=== PATIENT | female | born 1985 | race African-American/Black ===

== ENCOUNTER 2021-05-17 16:02 | Emergency (ER) | payer BC, SELFPAY ==
[2021-05-17 16:04] VITALS: BP 131/80; PULSE 75; RESP 18; TEMP 36.3; O2SAT 100
--- NOTE | 2021-05-17 18:13 | ED.DENTAL ---
HPI - Dental/Oral General Chief complaint: Dental/Oral Stated complaint: dental pain Time Seen by Provider: 05/17/21 18:00 History of Present Illness HPI Narrative: 36-year-old female presents to the emergency room with dental pain status post multiple tooth extraction 3 days ago. Patient states that she was sent home on OxyContin, and has recently been experiencing some nausea. Patient also states that the pain has gotten worse despite using the OxyContin and [id number] ibuprofen. Related Data Allergies Allergy/AdvReac Type Severity Reaction Status Date / Time No Known Allergies Allergy Verified 03/24/17 19:40 Review of Systems Review of Systems: CONSTITUTIONAL: Denies fever, chills, or sweats. EYES: Denies visual changes, redness, or discharge. ENT: Denies rhinorrhea, congestion, sore throat. Reports left lower dental pain CARDIOVASCULAR: Denies chest pain, palpitations, or edema. RESPIRATORY: Denies cough or dyspnea. GASTROINTESTINAL: Denies abdominal pain, nausea, vomiting, or diarrhea. GENITOURINARY: Denies dysuria or hematuria. SKIN: Denies rash or itching. MUSCULOSKELETAL: Denies back pain, joint pain, or myalgia. NEUROLOGIC: Denies headache, numbness, dizziness, or weakness. PSYCHIATRIC: Denies anxiety or depression. Exam Narrative: GENERAL: Well-appearing, well-nourished, and in no acute distress. HEAD: Normocephalic, atraumatic. EYES: PERRLA and EOMI. ENT: Nares clear, no rhinorrhea or epistaxis. Mucous membranes moist. Pain to tooth #16, dry socket to #17; no palpable left mandible mass NECK: Supple. No adenopathy or masses. No carotid bruits or JVD CHEST: Clear to auscultation. No respiratory distress. No wheezes rales or rhonchi HEART: Regular rate and rhythm. No murmur heard. Normal peripheral pulses. ABDOMEN: Soft, nontender, nondistended, normal active bowel sounds. EXTREMITIES: Normal range of motion. No edema. SKIN: Warm, dry, no rash. NEURO: No focal deficits. Alert and oriented x3. PSYCH: Normal mood and affect. Course Vital Signs Vital signs: Vital Signs Temperature 36.3 C L 05/17/21 16:04 Pulse Rate 75 05/17/21 16:04 Respiratory Rate 18 05/17/21 16:04 Blood Pressure 131/80 05/17/21 16:04 Pulse Oximetry 100 05/17/21 16:04 Temperature 36.3 C L 05/17/21 16:04 Pulse Rate 75 05/17/21 16:04 Respiratory Rate 18 05/17/21 16:04 Blood Pressure 131/80 05/17/21 16:04 Pulse Oximetry 100 05/17/21 16:04 MDM - Dental/Oral MDM Narrative Medical decision making narrative: Patient is status post multiple dental extraction. Concern for dry socket and/or dental abscess. Will send patient home with antibiotics Discharge Plan Discharge Clinical Impression: Toothache, Nausea Patient Disposition: Home, Self-Care Condition: Stable Instructions: Antibiotic Form, Toothache (ED) Additional Instructions: Continue OxyContin as needed. Recommend continuing ibuprofen as needed. Take prescriptions as indicated. Recommend follow-up with Ortho surgeon in 3 to 4 days if symptoms have not improved. Prescriptions: New amoxicillin-pot clavulanate 875-125 mg tablet 1 tablet PO Q12H Qty: 20 RF: 0 ondansetron 4 mg tablet,disintegrating 4 mg PO Q6H PRN (Reason: nausea and vomiting) Qty: 20 RF: 0 Follow-up/Referrals: Venkata,Beronica Antunez MD [Primary Care Provider] - Stand Alone Forms: Work/School Release IP
[2021-05-17 18:31] VITALS: BP 126/72; PULSE 72; RESP 16; TEMP 36.4; O2SAT 99
== END 2021-05-17 18:31 | disposition home or self-care (01) ==
PROVIDERS: Emergency Provider Nurse Practitioner Family; PCP Family Medicine
DX: K08.89 Other specified disorders of teeth and supporting structures (principal); R11.0 Nausea; M27.3 Alveolitis of jaws; Z98.818 Other dental procedure status
CPT/HCPCS: 99283

== ENCOUNTER 2021-08-11 08:54 | Emergency (ER) | payer OTHER, SELFPAY ==
--- NOTE | 2021-08-11 08:57 | ED.URI ---
HPI - URI/Sore Throat General Chief Complaint: Upper Respiratory Infection Stated Complaint: cough/chills/body aches Time Seen by Provider: 08/11/21 09:05 Source: patient, RN notes reviewed and old records reviewed Mode of arrival: ambulatory Limitations: no limitations History of Present Illness HPI Narrative: 36-year-old female presents to the [facility] with complaints of fever, body aches, nasal congestion that she woke up with this morning. No treatment prior to arrival MD elicited complaint: fever, rhinorrhea and nasal congestion Related Data Home Medications Medication Instructions Recorded Confirmed L norgest/e.estradiol-e.estrad 1 tablet PO DAILY 08/11/21 08/11/21 [Simpesse] amoxicillin 500 mg PO QID 08/11/21 08/11/21 Allergies Allergy/AdvReac Type Severity Reaction Status Date / Time No Known Allergies Allergy Verified 08/11/21 09:20 Review of Systems Review of Systems: All systems reviewed & are unremarkable except as noted in HPI and below Constitutional: Constitutional: Reports as per HPI, Reports body ache(s), Reports chills, Reports fatigue, Reports fever(s) and Denies headache(s) Eyes: Eyes: Reports no additional eye complaints ENT: Reports as per HPI, Denies vertigo, Denies dizziness, Denies headache(s), Denies nasal congestion and Denies sore throat Cardiovascular: Cardiovascular: Reports no additional cardiovascular complaints, Denies chest pain, Denies syncope, Denies rapid heart rate and Denies dyspnea Respiratory: Respiratory: Reports no additional respiratory complaints, Denies cough, Denies dyspnea and Denies wheezing Gastrointestinal: Gastrointestinal: Reports no additional gastrointestinal complaints, Denies abdominal pain, Denies diarrhea, Denies nausea and Denies vomiting Musculoskeletal: Musculoskeletal: Reports no additional musculoskeletal complaints and Denies numbness Integumentary/Breasts: Skin/Breast: Reports system reviewed and no additional complaints, except as docu Neurologic: Reports system reviewed and no additional complaints, except as documented, Denies vertigo, Denies dizziness, Denies syncope, Denies headache(s), Denies focal weakness and Denies numbness Psychiatric: Psychiatric: Reports no additional psychiatric complaints Allergic/Immunologic: Allergic/Immunologic: Reports no additional allergic/immunologic complaints and Denies wheezing PMFSH Comments At the time of my signature, I reviewed and agree with the nursing past medical, surgical, social, and family history. There is no relevant family history pertinent to the patient complaint. Exam Const: General: cooperative, no acute distress, well developed, alert and ill appearing acutely (Mild) Nutritional Appearance: well nourished Orientation/consciousness: patient oriented x3 Limitations: no limitations HENMT: Head: normal to inspection Ears: external ears normal, TM's normal bilaterally and EAC's normal General nose exam: Nasal discharge present clear Face and sinus: normal facial exam Mouth: Yes moist mucous membranes Throat: posterior oropharynx normal Eyes: Conjunctivae: conjunctivae normal Pupils: Equal, round and reactive pupils present Neck: Neck: normal visual inspection, no lymphadenopathy and no meningeal signs Chest: Chest palpation & inspection: normal inspection of the chest Resp: Effort & Inspection: normal respiratory effort and no use of accessory muscles Auscultation: clear to auscultation bilaterally, no crackles, no rales, no rhonchi and no wheezes Cardio: Rate: regular rate Rhythm: regular rhythm Back/Spine/Pelvis: Back: no CVA tenderness Skin: General skin exam: normal color Rashes: no rashes Wounds: no wounds Neuro: General: patient oriented x3, moves all extremities, no meningeal signs and no focal motor deficits Cranial nerves: Yes Equal, round and reactive pupils present Speech: normal speech Gait exam (Neuro): Normal gait present Extrem: General: normal to insp
[2021-08-11 09:03] VITALS: BP 94/72; PULSE 107; RESP 16; TEMP 38.3; O2SAT 98
[2021-08-11] MEDS: ACETAMINOPHEN 500 MG TABLET 1000 MG PO (09:15)
[2021-08-11 19:54] LABS: SARS-CoV-2 RNA PCR Positive
== END 2021-08-11 09:25 | disposition home or self-care (01) ==
PROVIDERS: Emergency Provider Nurse Practitioner; PCP Family Medicine
DX: U07.1 COVID-19 (principal)
CPT/HCPCS: 87804; 99213; A9270; C9803; G0463; U0003; U0005

== ENCOUNTER 2022-11-15 08:38 | Emergency (ER) | payer OTHER, SELFPAY ==
[2022-11-15 08:53] VITALS: BP 111/75; PULSE 79; RESP 20; TEMP 36.4; O2SAT 100
--- NOTE | 2022-11-15 09:39 | ED.URI ---
HPI - URI/Sore Throat General Chief Complaint: Upper Respiratory Infection Stated Complaint: congestion,cough Time Seen by Provider: 11/15/22 09:28 Source: patient and RN notes reviewed Mode of arrival: ambulatory Limitations: no limitations History of Present Illness HPI Narrative: Patient presents today complaining of a 3 day history of cough, congestion, sinus pressure, slight rhinorrhea. Denies fever, body aches, any additional symptoms. Denies known sick contacts. No history of asthma. She is a nonsmoker. She has been taking Tylenol and Sinex without relief. Related Data Home Medications Medication Instructions Recorded Confirmed L norgest/E estradiol-E estrad 1 tablet PO DAILY 08/11/21 11/15/22 0.15 mg-30 mcg (84)/10 mcg(7) tabs,3mos (Simpesse) Allergies Allergy/AdvReac Type Severity Reaction Status Date / Time No Known Allergies Allergy Verified 11/15/22 09:03 Review of Systems Review of Systems: CONSTITUTIONAL: Denies body aches, fever, chills, or sweats. EYES: Denies visual changes, redness, or discharge. ENT: Denies sore throat, or otalgia.+ rhinorrhea, congestion, sinus pressure CARDIOVASCULAR: Denies chest pain, palpitations, or edema. RESPIRATORY: Denies dyspnea.+ cough GASTROINTESTINAL: Denies abdominal pain, nausea, vomiting, or diarrhea. GENITOURINARY: Denies dysuria or hematuria. SKIN: Denies rash, itching, or wounds. MUSCULOSKELETAL: Denies back pain, joint pain, or myalgia. NEUROLOGIC: Denies headache, numbness, tingling, or weakness. PSYCH: Denies depression or anxiety. PMFSH Comments At time of signature, I have reviewed and agree with nursing past medical, surgical, social and family history unless otherwise noted. Please see nursing chart for further information. There is no relevant family history pertinent to the presenting complaint Exam Narrative: GENERAL: Well-appearing, well-nourished, and in no acute distress. HEAD: Normocephalic, atraumatic. EYES: EOMI. No redness or drainage. Conjunctivae normal. ENT: Mucous membranes pink and moist. Nares congested with rhinorrhea. TMs normal bilaterally. Throat normal. Uvula midline. NECK: Normal AROM. Supple. No lymphadenopathy. CHEST: No respiratory distress. Clear to auscultation. HEART: Regular rate and rhythm. No murmur appreciated. Normal peripheral pulses. EXTREMITIES: Normal range of motion. No edema. SKIN: Warm, dry, no rash. Capillary refill normal. Normal skin turgor. NEURO: No focal deficits. Alert and oriented x3. Gait steady. PSYCH: Normal affect. No signs of depression or anxiety. Course Course Level of Care: Express Care Visit Vital Signs Vital signs: Vital Signs Temperature 97.6 F 11/15/22 08:53 Pulse Rate 79 11/15/22 08:53 Respiratory Rate 20 11/15/22 08:53 Blood Pressure 111/75 11/15/22 08:53 Pulse Oximetry 100 11/15/22 08:53 Oxygen Delivery Room Air 11/15/22 08:53 Temperature 97.6 F 11/15/22 08:53 Pulse Rate 79 11/15/22 08:53 Respiratory Rate 20 11/15/22 08:53 Blood Pressure 111/75 11/15/22 08:53 Pulse Oximetry 100 11/15/22 08:53 Oxygen Delivery Room Air 11/15/22 08:53 Reviewed MDM - URI/Sore Throat MDM Narrative Medical decision making narrative: Symptoms are consistent with a viral upper respiratory infection. No prescription medications indicated at this time. No testing indicated. Discussed [id number] options. Anticipatory guidance given. Differential Diagnosis Differential diagnosis: Likely upper respiratory infection, otitis media, sinusitis, viral infection, bronchitis and other (Pneumonia) Critical Care Time Critical Care Time Critical Care Time: No Discharge Plan Discharge Clinical Impression: Upper respiratory infection Qualifiers: URI type: unspecified viral URI Qualified Code(s): J06.9 - Acute upper respiratory infection, unspecified Patient Disposition: Home, Self-Care Condition: Stable Instr
== END 2022-11-15 09:51 | disposition home or self-care (01) ==
PROVIDERS: Emergency Provider Nurse Practitioner; PCP Family Medicine
DX: J06.9 Acute upper respiratory infection, unspecified (principal)
CPT/HCPCS: 99211; G0463

== ENCOUNTER 2023-08-17 14:51 | Emergency (ER) | payer OTHER, SELFPAY ==
[2023-08-17 15:00] VITALS: BP 109/68; PULSE 87; RESP 18; TEMP 36.7; O2SAT 100
--- NOTE | 2023-08-17 15:37 | ED.SKABFB ---
HPI - Skin/Abscess/Foreign Bdy General Chief complaint: Skin/Abscess/Foreign Body Stated complaint: Insect Bite/Bodyaches Source: patient Mode of arrival: ambulatory Limitations: no limitations History of Present Illness HPI narrative: 38-year-old female presented for complaint of pain and redness to right buttock, along with body aches and chills today. denies drainage to the site. Has not taken anything for pain. Denies any other skin concerns. Related Data Home Medications Medication Instructions Recorded Confirmed L norgest/E estradiol-E estrad 1 tablet PO DAILY 08/11/21 08/17/23 0.15 mg-30 mcg (84)/10 mcg(7) tabs,3mos (Simpesse) Allergies Allergy/AdvReac Type Severity Reaction Status Date / Time No Known Allergies Allergy Verified 11/15/22 09:03 Review of Systems Review of Systems: CONSTITUTIONAL: Reports body aches, fever, chills, or sweats. CARDIOVASCULAR: Denies chest pain, palpitations, or edema. RESPIRATORY: Denies cough or dyspnea. GASTROINTESTINAL: Denies abdominal pain, nausea, vomiting, or diarrhea. SKIN: reports redness and pain right buttock MUSCULOSKELETAL: Denies back pain, joint pain, or myalgia. NEUROLOGIC: Denies headache, numbness, tingling, or weakness. PMFSH Comments At time of signature, I have reviewed and agree with nursing past medical, surgical, social and family history unless otherwise noted. Please see nursing chart for further information. There is no relevant family history pertinent to the presenting complaint Exam Narrative: GENERAL: Well-appearing HEAD: Normocephalic, atraumatic. EYES: conjunctivae clear, and EOMI. ENT: Mucous membranes moist. Oropharynx without edema, erythema or lesions. NECK: Supple. No lymphadenopathy CHEST: Clear to auscultation. HEART: Regular rate and rhythm. SKIN: Warm, dry. Right medial buttock with erythema and tenderness approx 6cm diameter; no fluctuance or active drainage. NEURO: Alert and oriented x3. Course Course Emergency Course: Patient is aware of diagnosis, understands and agrees to treatment plan. Anticipatory guidance given. Patient agrees to follow-up as directed and is aware of reasons to seek care at the emergency department. Portions of this record may have been created with voice recognition software Level of Care: Express Care Visit Vital Signs Vital signs: Vital Signs Temperature 98.0 F 08/17/23 15:00 Pulse Rate 87 08/17/23 15:00 Respiratory Rate 18 08/17/23 15:00 Blood Pressure 109/68 08/17/23 15:00 Pulse Oximetry 100 08/17/23 15:00 Oxygen Delivery Room Air 08/17/23 15:00 Temperature 98.0 F 08/17/23 15:00 Pulse Rate 87 08/17/23 15:00 Respiratory Rate 18 08/17/23 15:00 Blood Pressure 109/68 08/17/23 15:00 Pulse Oximetry 100 08/17/23 15:00 Oxygen Delivery Room Air 08/17/23 15:00 Reviewed MDM - Skin/Abscess/Foreign Bdy MDM Narrative Medical decision making narrative: Discussed physical exam findings c/w abscess, no indication for I&D at this time pt is aware of the possibility sx will worsen and will require I&D, v/u. Rx abx. Advised supportive measures and signs/symptoms to go to the ER. Pt is appropriate for outpt treatment and f/u. Differential Diagnosis Differential diagnosis: Likely abscess of skin or subcutaneous tissue, urticaria, herpes zoster, cellulitis and contact dermatitis Discharge Plan Discharge Clinical Impression: Abscess of skin or subcutaneous tissue Patient Disposition: Home, Self-Care Condition: Stable Instructions: Antibiotic Form, Abscess (ED) Additional Instructions: You may shower and Cleanse with warm soapy water Warm compresses at least 4 times a day to the site to help expel any additional drainage. Keep your wound covered while draining Take antibiotic as directed sitz bath as needed Tylenol and ibuprofen every 8 hours for pain as needed Follow up with your primary care physician in
== END 2023-08-17 15:53 | disposition home or self-care (01) ==
PROVIDERS: Emergency Provider Nurse Practitioner Family; PCP Nurse Practitioner
DX: L02.31 Cutaneous abscess of buttock (principal)
CPT/HCPCS: 99213; G0463

== ENCOUNTER 2023-08-18 20:25 | Emergency (ER) | payer OTHER, SELFPAY ==
--- NOTE | ~2023-08-18 | CT_ITS ---
CT of the Abdomen and Pelvis: Indication: Perirectal edema/erythema Technique: 2.5 mm axial scans were obtained through the abdomen and pelvis following intravenous adm inistration of 100 cc of Omnipaque 350. Dose reduction technique was used on this scan by utilizing a utomated exposure control and iterative reconstruction technique. The dose-length product (DLP) was 1 158.04 mGy-cm. Findings: Scans through the lung bases are unremarkable. There is a 2 cm suspected right hepatic lobe hemangioma. The spleen, pancreas, gallbladder, adrenals and kidneys are within normal limits. No evidence of aortic aneurysm. No lymphadenopathy. No bowel obstruction or bowel wall thickening. There is no evidence to suggest acute appendicitis. Images through the pelvis were performed. Urinary bladder unremarkable. No ascites uterine fibroids a re present. There is mild asymmetric infiltrative change in the subcutaneous soft tissues in the medial right but tock near the perirectal region. No distinct fluid collection evident. Impression: Infiltrative changes in the medial right buttock region near the perirectal region could reflect cell ulitis or other focal inflammatory process. No definite drainable fluid collection. Suspected 2 cm right hepatic lobe hemangioma. Uterine fibroids. Reviewed, dictated and finalized at location . Impression: Infiltrative changes in the medial right buttock region near the perirectal reg ion could reflect cellulitis or other focal inflammatory process. No definite d rainable fluid collection. Suspected 2 cm right hepatic lobe hemangioma. Uterine fibroids.
[2023-08-18 20:48] VITALS: BP 128/82; PULSE 108; RESP 18; TEMP 36.8; O2SAT 100
--- NOTE | 2023-08-18 23:42 | ED.WOUNDLAC ---
HPI - Wound/Laceration General Chief Complaint: Wound/Laceration Stated Complaint: BOIL ON BUTTOCKS Time Seen by Provider: 08/18/23 21:57 Source: patient Mode of arrival: ambulatory Limitations: no limitations History of Present Illness HPI narrative: This is a 38-year-old female that presents to the ER for abscess to the right buttock. Reports ongoing over the last couple of days. Denies fevers or drainage. Related Data Home Medications Medication Instructions Recorded Confirmed L norgest/E estradiol-E estrad 1 tablet PO DAILY 08/11/21 08/17/23 0.15 mg-30 mcg (84)/10 mcg(7) tabs,3mos (Simpesse) Allergies Allergy/AdvReac Type Severity Reaction Status Date / Time No Known Allergies Allergy Verified 08/18/23 20:51 Review of Systems Review of Systems: CONSTITUTIONAL: Denies fever GASTROINTESTINAL: Denies abdominal pain, nausea, vomiting SKIN: Reports redness and swelling All systems reviewed & are unremarkable except as noted in HPI and below PMFSH Past Medical History Medical History (Updated 08/19/23 @ 03:06 by Mackenzie Sterling PA-C) No active medical problems Social History Social History (Updated 08/18/23 @ 23:47 by Mackenzie Sterling PA-C) Substance use: never Exam Narrative: GENERAL: Well-appearing, well-nourished, and in no acute distress. HEAD: Normocephalic, atraumatic. EYES: EOMI. CHEST: Clear to auscultation. No respiratory distress. No wheezes rales or rhonchi HEART: Regular rate and rhythm. No murmur heard. Normal peripheral pulses. EXTREMITIES: Normal range of motion. Right buttock with area of edema and induration luz marina-rectally SKIN: Warm, dry, no rash. NEURO: No focal deficits. Alert and oriented x3. PSYCH: Normal mood and affect Course Course Emergency Course: Patient updated on workup and agrees with plan of care Vital Signs Vital signs: Vital Signs Temperature 98.3 F 08/18/23 20:48 Pulse Rate 108 H 08/18/23 20:48 Respiratory Rate 18 08/18/23 20:48 Blood Pressure 128/82 08/18/23 20:48 Pulse Oximetry 100 08/18/23 20:48 Oxygen Delivery Room Air 08/18/23 20:48 Temperature 98.3 F 08/18/23 20:48 Pulse Rate 108 H 08/18/23 20:48 Respiratory Rate 18 08/18/23 20:48 Blood Pressure 128/82 08/18/23 20:48 Pulse Oximetry 100 08/18/23 20:48 Oxygen Delivery Room Air 08/18/23 20:48 Procedures Abscess I/D luz marina-rectal: Date of Incision: 08/19/23 Time of Incision: 03:04 Side (if applicable): right Local Anesthetic: lidocaine 1% and with epi Amount of anesthesia used (mL): 2 Technique: incised with #11 blade Irrigation: Yes Packing used?: plain I&D Results: Pus and Blood MDM - Wound/Laceration MDM Narrative Medical decision making narrative: Patient presents to the emergency department for redness and swelling of the right buttock. She is afebrile and nontoxic appearing. Her vitals are stable. CBC with leukocytosis to 14.6. Metabolic panel without concerning findings. test is negative. CT abdomen pelvis shows right medial buttock cellulitis. Possible small phlegmon versus early abscess. Liver lesion. Abscess was successfully drained. Patient will be continued on oral antibiotics. She was instructed on further wound care. She is to follow up with primary provider. She was given warnings to return to the ER Differential Diagnosis Differential diagnosis: Likely abscess and other (cellulitis) Lab Data Attestation: I reviewed the patient's lab results. 08/18/23 23:35 08/18/23 23:35 Labs: Lab Results 08/18/23 Range/Units 23:35 WBC 14.6 H (4.5-10.0) K/mm3 RBC 4.34 (4.2-5.4) M/mm3 Hgb 13.2 (12.0-15.0) g/dL Hct 39.9 (37.0-47.0) % MCV 91.9 (80-100) fl MCH 30.4 (26-34) pg MCHC 33.1 (32-36) g/dl RDW 12.6 (11.5-14.5) % Plt Count 363 (150-375) k/mm3 MPV 9.6 (7.4-10.4) fl Immature Gran % (A
[2023-08-18 23:44] LABS: Basophils Percent Auto 0.3 % (0.2-1.2); Eosinophils Percent Auto 0.3 % (0-4.4); Hematocrit 39.9 % (37.0-47.0); Hemoglobin 13.2 g/dL (12.0-15.0); Immature Granulocyte Absolute 0.04 K/mm3 (0.00-0.031); Immature Granulocyte Percent A 0.3 % (0-0.5); Lymphocytes Absolute Auto 0.92 K/mm3 (0.9-3.2); Lymphocytes Percent Auto 6.3 % (18.3-44.2); Mean Corpuscular HGB Conc 33.1 g/dl (32-36); Mean Corpuscular Hemoglobin 30.4 pg (26-34); Mean Corpuscular Volume 91.9 fl (80-100); Mean Platelet Volume 9.6 fl (7.4-10.4); Monocytes Absolute Auto 0.8 K/mm3 (0.1-0.6); Monocytes Percent Auto 5.5 % (2.6-8.5); Neutrophils Absolute Auto 12.8 K/mm3 (1.3-6.7); Neutrophils Percent Auto 87.3 % (45.5-73.1); Platelet Count Result 363 k/mm3 (150-375); Red Blood Count 4.34 M/mm3 (4.2-5.4); Red Cell Distribution Width 12.6 % (11.5-14.5); White Blood Count 14.6 K/mm3 (4.5-10.0)
[2023-08-18 23:54] LABS: Alanine Aminotransferase 15 U/L (6-35); Albumin Level 4.6 g/dL (3.5-5.1); Alkaline Phosphatase 83 U/L (38-126); Anion Gap 7 mmol/L (4-12); Aspartate Amino Transferase 21 U/L (14-36); Bilirubin,Total 0.7 mg/dL (0.2-1.3); Blood Urea Nitrogen 12 mg/dL (7-17); Calcium 9.4 mg/dL (8.4-10.2); Carbon Dioxide 26 mmol/L (22-30); Chloride 105 mmol/L (98-107); Estimated CRCL calculation 109 ml/min; Estimated Glomerular Filt Rate > 60; Glucose 105 mg/dL (65-110); Potassium 3.8 mmol/L (3.4-5.0); Sodium 138 mmol/L (137-145)
[2023-08-19 03:14] VITALS: BP 120/82; PULSE 94; RESP 15; O2SAT 100
== END 2023-08-19 03:15 | disposition home or self-care (01) ==
PROVIDERS: Emergency Provider Physician Assistant; PCP Nurse Practitioner
DX: L02.31 Cutaneous abscess of buttock (principal); K76.9 Liver disease, unspecified
CPT/HCPCS: 36415; 46050; 74177; 80053; 81025; 85025; 87070; 87077; 87186; 87205; 99284; Q9967